=== PATIENT | female | born 1995 | race Caucasian/White ===

== ENCOUNTER 2019-06-25 07:47 | Emergency (ER) | payer SELFPAY ==
[~2019-06-25] VITALS: Ht 147.3 cm; Wt 67.3 kg
[2019-06-25 07:54] VITALS: BP 120/80
--- NOTE | 2019-06-25 07:58 | NUR ---
Patient ambulated to bed 3 with family. RN evaluating patient at bedside.
--- NOTE | 2019-06-25 08:22 | NUR ---
24/F BIB SELF c/o moist cough, bodyaches, f/c, anterior chest wall pain upon coughing, rhinorrhea x 2 wk. PATIENT STATES PAIN OF 9/10 AT THIS TIME. PATIENT POSITIONED FOR COMFORT; HOB ELEVATED; BEDRAILS UP X1; BED DOWN. ER MD MADE AWARE OF PT STATUS.
--- NOTE | 2019-06-25 08:37 | NUR ---
X RAY AT BEDSIDE
--- NOTE | 2019-06-25 09:08 | NUR ---
Dr. Escudero evaluating patient at bedside.
[2019-06-25 09:46] VITALS: BP 130/71
--- NOTE | 2019-06-25 09:46 | NUR ---
Patient discharged with v/s stable. Written and verbal after care instructions given and explained. Patient verbalized understanding. Ambulatory with steady gait. All questions addressed prior to discharge. Advised to follow up with PMD.
== END 2019-06-25 09:46 | disposition home or self-care (01) ==
LOC: MED 07:47
DX: O26.891 Other specified pregnancy related conditions, first trimester (principal); J40 Bronchitis, not specified as acute or chronic; O21.9 Vomiting of pregnancy, unspecified; Z3A.01 Less than 8 weeks gestation of pregnancy; Z33.1 Pregnant state, incidental
CPT/HCPCS: 71045; 81002; 81025; 99283; Q0092

== ENCOUNTER 2019-07-14 23:07 | Emergency (ER) | payer SELFPAY ==
[~2019-07-14] VITALS: Ht 149.9 cm; Wt 66.2 kg
[2019-07-14 23:14] VITALS: BP 124/61
--- NOTE | 2019-07-15 01:02 | NUR ---
PT AMBULATED TO BED 9 WITH PARTNER
--- NOTE | 2019-07-15 01:38 | NUR ---
VSS AT THIS TIME. PT AA0X4
--- NOTE | 2019-07-15 01:40 | NUR ---
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 REPORTS VOMITING X2 TODAY. PT NOT CURRENTLY VOMITING. PT IS 7 WEEKS , CONFIRMED BY US. 2, LIVING 1. DENIES ABORTIONS OR MISCARRIAGES. VSS. AA0X4. BED IS DOWN, LOCKED, BEDRAIL X 1, ERMD TO SEE PT. DENIES MED HX OR RX. OTC VITAMINS
--- NOTE | 2019-07-15 02:14 | NUR ---
LAB AT BEDSIDE
--- NOTE | 2019-07-15 02:17 | NUR ---
US AT BEDSIDE
[2019-07-15 02:27] LABS: BASOPHILS # (AUTO) 0.1 K/uL (0.00-0.22); BASOPHILS % (AUTO) 0.7 % (0.0-2.0); EOSINOPHILS # (AUTO) 0.2 K/uL (0-0.4); EOSINOPHILS % (AUTO) 1.3 % (0.0-4.0); HEMATOCRIT 39.9 % (36-48); HEMOGLOBIN 13.3 g/dL (12.0-16.0); LYMPHOCYTES # (AUTO) 2.8 K/uL (2.5-16.5); LYMPHOCYTES % (AUTO) 23.9 % (20.5-51.1); MEAN CORPUSCULAR HEMOGLOBIN 30 pg (27-31); MEAN CORPUSCULAR HGB CONC 33 g/dL (33-37); MEAN CORPUSCULAR VOLUME 90.5 fL (80-94); MONOCYTES # (AUTO) 0.6 K/uL (0.8-1.0); NEUTROPHILS # (AUTO) 8.1 K/uL (1.8-7.7); PLATELET COUNT (AUTO) 348 K/uL (140-450); RED BLOOD CELL COUNT(AUTO) 4.41 MIL/uL (4.20-5.40); RED CELL DISTRIBUTION WIDTH 12.7 % (11.6-13.7); WHITE BLOOD COUNT (AUTO) 11.7 K/uL (4.8-10.8)
[2019-07-15 02:28] LABS: APPEARANCE,URINE CLEAR (CLEAR); BILIRUBIN,URINE NEGATIVE (NEGATIVE); BLOOD, URINE TRACE-I (NEGATIVE); COLOR,URINE YELLOW (YELLOW); LEUKOCYTE ESTERASE ,URINE 1+ (NEGATIVE); NITRITE, URINE NEGATIVE (NEGATIVE); UGLUCOSE NEGATIVE (NEGATIVE)
[2019-07-15 02:38] LABS: ANION GAP 14.8 (8-16); CREATININE 0.6 mg/dL (0.6-1.3); POTASSIUM 3.8 mmol/L (3.5-5.1)
--- NOTE | 2019-07-15 02:48 | NUR ---
PT AMB TO RESTROOM WITH STEADY GAIT
[2019-07-15 03:07] LABS: NEUTROPHILS % (AUTO) 69.1 % (42.2-75.2)
[2019-07-15 03:20] LABS: RBC,URINE 0-5 /HPF (0-5); WBC,URINE 0-5 /HPF (0-5)
--- NOTE | 2019-07-15 03:23 | NUR ---
VSS AT THIS TIME. PT AA0X4. PENDING PELVIC EXAM
--- NOTE | 2019-07-15 03:40 | NUR ---
Female Leach Tank Tender accompanied female patient for Pelvic Exam WITH DR DWYER. WET MOUNT COLLECTED
[2019-07-15 05:16] VITALS: BP 104/50
--- NOTE | 2019-07-15 05:16 | NUR ---
Patient discharged with v/s stable. Written and verbal after care instructions given and explained. Patient alert, oriented and verbalized understanding of instructions. Ambulatory with steady gait. All questions addressed prior to discharge. ID band removed. Patient advised to follow up with PMD. Rx of FLAGYL given. Patient educated on indication of medication including possible reaction and side effects. Opportunity to ask questions provided and answered. PT INSTRUCTED TO FOLLOW UP WITH OBGYN.
[2019-07-17 06:07] LABS: CHLAMYDIA TRACHOMATIS AMP DNA Negative (Negative)
== END 2019-07-15 05:16 | disposition home or self-care (01) ==
LOC: MED 23:07
DX: O21.8 Other vomiting complicating pregnancy (principal); O20.8 Other hemorrhage in early pregnancy; Z3A.01 Less than 8 weeks gestation of pregnancy
CPT/HCPCS: 36415; 76817; 80048; 81001; 81025; 84702; 85025; 86900; 86901; 87086; 87210; 87491; 99284; Q0092

== ENCOUNTER 2019-07-17 18:22 | Emergency (ER) | payer MEDICAID ==
[~2019-07-17] VITALS: Ht 149.9 cm; Wt 66.2 kg
[2019-07-17 18:54] VITALS: BP 106/73
--- NOTE | 2019-07-17 19:01 | NUR ---
AMBULATED TO BED 7
--- NOTE | 2019-07-17 19:12 | NUR ---
Dr. Swanson examining patient.
--- NOTE | 2019-07-17 19:49 | NUR ---
33 Y/O FEMALE C/O LOWER ABDOMINAL PAIN RADIATING TO LOWER BACK & VAGINAL BLEEDING X TODAY. PREG 7 WEEKS, LMP 04/23/19. A0 L1. PATIENT IS A/OX3; FOLLOWS COMMANDS; BREATHING IS UNLABORED AND SYMMETRICAL. ABDOMINAL SOUNDS HEARD ON ALL FOUR QUADRANTS; SOFT AND ROUND ABDOMEN NOTED. ERMD MADE AWARE OF STATUS. SIDE RAILSX1. MED HX:DENIES NKDA RX: VITAMINS
[2019-07-17 20:37] LABS: APPEARANCE,URINE CLOUDY (CLEAR); BILIRUBIN,URINE NEGATIVE (NEGATIVE); BLOOD, URINE NEGATIVE (NEGATIVE); COLOR,URINE YELLOW (YELLOW); LEUKOCYTE ESTERASE ,URINE 3+ (NEGATIVE); NITRITE, URINE NEGATIVE (NEGATIVE); UGLUCOSE NEGATIVE (NEGATIVE)
[2019-07-17 20:45] LABS: BASOPHILS # (AUTO) 0.1 K/uL (0.00-0.22); BASOPHILS % (AUTO) 0.7 % (0.0-2.0); EOSINOPHILS # (AUTO) 0.1 K/uL (0-0.4); EOSINOPHILS % (AUTO) 1.2 % (0.0-4.0); HEMOGLOBIN 13.6 g/dL (12.0-16.0); LYMPHOCYTES # (AUTO) 2.4 K/uL (2.5-16.5); LYMPHOCYTES % (AUTO) 23.9 % (20.5-51.1); MEAN CORPUSCULAR HEMOGLOBIN 31 pg (27-31); MEAN CORPUSCULAR HGB CONC 34 g/dL (33-37); MEAN CORPUSCULAR VOLUME 91.1 fL (80-94); MONOCYTES # (AUTO) 0.6 K/uL (0.8-1.0); MONOCYTES % (AUTO) 5.9 % (1.7-9.3); NEUTROPHILS # (AUTO) 6.8 K/uL (1.8-7.7); NEUTROPHILS % (AUTO) 68.3 % (42.2-75.2); PLATELET COUNT (AUTO) 355 K/uL (140-450); RED BLOOD CELL COUNT(AUTO) 4.39 MIL/uL (4.20-5.40); RED CELL DISTRIBUTION WIDTH 13.1 % (11.6-13.7)
[2019-07-17 20:48] LABS: RBC,URINE NONE SEEN /HPF (0-5)
[2019-07-17 21:01] LABS: ANION GAP 11.9 (8-16); CARBON DIOXIDE 26.2 mmol/L (21-32); CREATININE 0.5 mg/dL (0.6-1.3); POTASSIUM 4.1 mmol/L (3.5-5.1)
[2019-07-17 21:06] LABS: ALBUMIN 3.4 g/dL (3.4-5.0); TOTAL BILIRUBIN 0.2 mg/dL (0.0-1.0)
--- NOTE | 2019-07-17 21:13 | NUR ---
PATIENT IS QUIETLY SITTING IN BED;NO DISTRESS NOTED. AT BEDSIDE. WILL CONTINUE TO MONITOR.
--- NOTE | 2019-07-17 23:15 | NUR ---
PATIENT IS IN NO DISTRESS AT THIS TIME. AT BEDSIDE. WILL CONTINUE TO MONITOR.
[2019-07-17 23:33] VITALS: BP 113/64
--- NOTE | 2019-07-17 23:33 | NUR ---
Patient discharged with v/s stable. Written and verbal after care instructions given and explained. Patient alert, oriented and verbalized understanding of instructions. Ambulatory with steady gait. All questions addressed prior to discharge. ID band removed. Patient advised to follow up with PMD. Rx of NEUROFANTIN AND REGLAN given. Patient educated on indication of medication including possible reaction and side effects. Opportunity to ask questions provided and answered.
== END 2019-07-17 23:33 | disposition home or self-care (01) ==
LOC: MED 18:22
DX: O20.9 Hemorrhage in early pregnancy, unspecified (principal); O26.891 Other specified pregnancy related conditions, first trimester; R05 Cough; R06.02 Shortness of breath; Z3A.01 Less than 8 weeks gestation of pregnancy
CPT/HCPCS: 36415; 76817; 80053; 81001; 84702; 85025; 87086; 99284; Q0092

== ENCOUNTER 2019-07-23 21:58 | Emergency (ER) | payer MEDICAID ==
[~2019-07-23] VITALS: Ht 149.9 cm; Wt 66.2 kg
[2019-07-23 22:17] VITALS: BP 106/66
--- NOTE | 2019-07-23 22:17 | NUR ---
PT AMBULATED TO BED 12.
--- NOTE | 2019-07-23 22:36 | NUR ---
PT C/O LOW BACK PAIN AND SUPRAPUBIC PAIN X2 DAY. PT STATES 8 WEEKS . N/V. DENIES DIARRHEA. PT STATES SHE WAS DIAGNOSED WITH UTI X1 WEEK AGO. PT STATES SHE HAS BEEN COMPLIANT WITH ANTIBIOTICS. PT TAKING ZOFRAN FOR NAUSEA W/ NO RELIEF. PT ALSO STATES SHE IS TAKING VITAMINS. PT CALM AND PLEASANT IN BED. FAMILY MEMBER AT BEDSIDE. VSS. MEDHX: DENIES ALLERGIES: DENIES
--- NOTE | 2019-07-23 23:25 | NUR ---
PT C/O ACHING LOWER BACK AND LOWER ABD PAIN AT THIS TIME. PT FAMILY MEMBER AT BEDSIDE. VSS. WILL CONTINUE TO MONITOR.
[2019-07-23] MEDS ORDERED: ACETAMINOPHEN EXTRA STRENGTH 500 MG TAB PO ONE (23:55)
[2019-07-24 00:18] LABS: APPEARANCE,URINE CLEAR (CLEAR); COLOR,URINE YELLOW (YELLOW)
[2019-07-24 00:19] LABS: BILIRUBIN,URINE NEGATIVE (NEGATIVE); BLOOD, URINE NEGATIVE (NEGATIVE); LEUKOCYTE ESTERASE ,URINE SMALL (NEGATIVE); NITRITE, URINE NEGATIVE (NEGATIVE); UGLUCOSE NEGATIVE (NEGATIVE)
[2019-07-24 00:20] LABS: RBC,URINE 0-5 /HPF (0-5)
--- NOTE | 2019-07-24 00:22 | NUR ---
PT RESTING IN BED WITH FAMILY MEMBER AT BEDSIDE. BED LOCKED AND IN LOW POSITION, PT IN BED COMFORTABLY. VSS AT THIS TIME. PT STATES PAIN IS TOLERABLE, 5/10. WILL CONTINUE TO MONITOR.
[2019-07-24 00:59] VITALS: BP 110/64
--- NOTE | 2019-07-24 00:59 | NUR ---
Patient discharged with v/s stable. Written and verbal after care instructions given and explained. Patient alert, oriented and verbalized understanding of instructions. Ambulatory with to home. All questions addressed prior to discharge. ID band removed. Patient advised to follow up with PMD. Rx of DICLEGIS, KEFLEX, AND ACETAMINOPHEN given. Patient educated on indication of medication including possible reaction and side effects. Opportunity to ask questions provided and answered. ACCOMPANIED BY FAMILY MEMBER.
== END 2019-07-24 00:59 | disposition home or self-care (01) ==
LOC: MED 21:58
DX: O23.41 Unspecified infection of urinary tract in pregnancy, first trimester (principal); O26.891 Other specified pregnancy related conditions, first trimester; J06.9 Acute upper respiratory infection, unspecified; Z3A.01 Less than 8 weeks gestation of pregnancy
CPT/HCPCS: 81001; 81025; 87086; 99283

== ENCOUNTER 2019-11-28 22:26 | Observation (INO) | payer MEDICAID, OTHER ==
[~2019-11-28] VITALS: Ht 152.4 cm; Wt 64.9 kg
[2019-11-28 22:30] VITALS: BP 108/65
--- NOTE | 2019-11-28 22:35 | NUR ---
TO LABOR AND DELIVERY. VIA WHEEL CHAIR
[2019-11-28 22:50] VITALS: BP 107/68
[2019-11-28] MEDS ORDERED: FERR-252 PO (23:09)
[2019-11-28] MEDS ORDERED: PREN-380 PO (23:09)
[2019-11-28] MEDS ORDERED: cefTRIAXone 1,000 MG in LIDOCAINE MPF 1% 2.1 ML IM ONE (23:45)
[2019-11-29 00:09] LABS: BILIRUBIN,URINE NEGATIVE (NEGATIVE); BLOOD, URINE NEGATIVE (NEGATIVE); COLOR,URINE YELLOW (YELLOW); LEUKOCYTE ESTERASE ,URINE TRACE (NEGATIVE); NITRITE, URINE NEGATIVE (NEGATIVE); UGLUCOSE NEGATIVE (NEGATIVE)
[2019-11-29] MEDS ORDERED: NITROFURANTOIN 100 MG CAP PO SCH (00:10)
[2019-11-29 00:32] LABS: APPEARANCE,URINE SLIGHTLY CLOUDY (CLEAR); RBC,URINE 0-5 /HPF (0-5)
[2019-11-29 00:33] LABS: URINE AMORPHOUS URATE 3+ /HPF (None Seen); WBC,URINE 0-5 /HPF (0-5)
== END 2019-11-29 01:00 | disposition home or self-care (01) ==
LOC: MED 22:26 → MLD 22:48
PROVIDERS: ADMIT Obstetrics & Gynecology; ATTEND Obstetrics & Gynecology
DX: O23.42 Unspecified infection of urinary tract in pregnancy, second trimester (principal); Z3A.26 26 weeks gestation of pregnancy
CPT/HCPCS: 81000; 81001; 87086; 99281; G0378

== ENCOUNTER 2020-02-01 22:05 | Observation (INO) | payer OTHER ==
[~2020-02-01] VITALS: Ht 149.9 cm; Wt 67.1 kg
[~2020-02-01 22:05] MED LIST: FERR-252 PO; PREN-380 PO
[2020-02-02 00:56] LABS: APPEARANCE,URINE CLEAR (CLEAR); BILIRUBIN,URINE NEGATIVE (NEGATIVE); BLOOD, URINE NEGATIVE (NEGATIVE); COLOR,URINE YELLOW (YELLOW); LEUKOCYTE ESTERASE ,URINE NEGATIVE (NEGATIVE); NITRITE, URINE NEGATIVE (NEGATIVE); UGLUCOSE NEGATIVE (NEGATIVE)
== END 2020-02-02 00:59 | disposition home or self-care (01) ==
LOC: MLD 22:05
PROVIDERS: ADMIT Obstetrics & Gynecology; ATTEND Obstetrics & Gynecology
DX: O36.8130 Decreased fetal movements, third trimester, not applicable or unspecified (principal); O26.893 Other specified pregnancy related conditions, third trimester; R10.2 Pelvic and perineal pain; O99.89 Other specified diseases and conditions complicating pregnancy, childbirth and the puerperium; M54.9 Dorsalgia, unspecified; Z3A.34 34 weeks gestation of pregnancy
CPT/HCPCS: 76819; 81003; 87086; G0378; Q0092

== ENCOUNTER 2020-02-08 14:43 | Observation (INO) | payer OTHER ==
[~2020-02-08] VITALS: Ht 152.4 cm; Wt 70.3 kg
[2020-02-08 15:36] VITALS: BP 101/58
[2020-02-08] MEDS ORDERED: cefTRIAXone 1,000 MG in LIDOCAINE MPF 1% 2.1 ML IM SCH (16:30)
[2020-02-08 16:59] LABS: BASOPHILS % (AUTO) 0.3 % (0.0-2.0); EOSINOPHILS % (AUTO) 0.6 % (0.0-4.0); HEMATOCRIT 34.9 % (36-48); HEMOGLOBIN 11.4 g/dL (12.0-16.0); LYMPHOCYTES # (AUTO) 1.9 K/uL (2.5-16.5); LYMPHOCYTES % (AUTO) 22.7 % (20.5-51.1); MEAN CORPUSCULAR HEMOGLOBIN 27 pg (27-31); MEAN CORPUSCULAR HGB CONC 33 g/dL (33-37); MONOCYTES # (AUTO) 0.6 K/uL (0.8-1.0); MONOCYTES % (AUTO) 6.8 % (1.7-9.3); NEUTROPHILS # (AUTO) 5.8 K/uL (1.8-7.7); NEUTROPHILS % (AUTO) 69.6 % (42.2-75.2); PLATELET COUNT (AUTO) 304 K/uL (140-450); RED BLOOD CELL COUNT(AUTO) 4.26 MIL/uL (4.20-5.40); WHITE BLOOD COUNT (AUTO) 8.3 K/uL (4.8-10.8)
[2020-02-08 17:18] LABS: ALBUMIN 2.3 g/dL (3.4-5.0); ANION GAP 13.4 (8-16); CARBON DIOXIDE 21.3 mmol/L (21-32); CREATININE 0.8 mg/dL (0.6-1.3); POTASSIUM 3.7 mmol/L (3.5-5.1); TOTAL BILIRUBIN 0.2 mg/dL (0.0-1.0)
== END 2020-02-08 19:10 | disposition home or self-care (01) ==
LOC: MLD 14:43
PROVIDERS: ADMIT Obstetrics & Gynecology; ATTEND Obstetrics & Gynecology
DX: O26.893 Other specified pregnancy related conditions, third trimester (principal); R10.9 Unspecified abdominal pain; Z3A.37 37 weeks gestation of pregnancy
CPT/HCPCS: 36415; 76805; 80053; 85025; 87086; 96372; G0378; J0696; J2001; Q0092; 81000

== ENCOUNTER 2020-02-17 13:40 | Inpatient (IN) | payer OTHER ==
[~2020-02-17] VITALS: Ht 152.4 cm; Wt 73.9 kg
[2020-02-17] MEDS ORDERED: PROMETHAZINE 25 MG/ML VIAL IVP PRN (14:45)
[2020-02-17 15:25] LABS: BASOPHILS # (AUTO) 0.1 K/uL (0.00-0.22); EOSINOPHILS # (AUTO) 0.1 K/uL (0-0.4); EOSINOPHILS % (AUTO) 0.8 % (0.0-4.0); HEMATOCRIT 35.9 % (36-48); HEMOGLOBIN 11.6 g/dL (12.0-16.0); LYMPHOCYTES # (AUTO) 1.9 K/uL (2.5-16.5); LYMPHOCYTES % (AUTO) 18.2 % (20.5-51.1); MEAN CORPUSCULAR HEMOGLOBIN 26 pg (27-31); MEAN CORPUSCULAR HGB CONC 32 g/dL (33-37); MEAN CORPUSCULAR VOLUME 81.1 fL (80-94); MONOCYTES # (AUTO) 0.5 K/uL (0.8-1.0); MONOCYTES % (AUTO) 4.9 % (1.7-9.3); NEUTROPHILS # (AUTO) 7.7 K/uL (1.8-7.7); NEUTROPHILS % (AUTO) 75.1 % (42.2-75.2); PLATELET COUNT (AUTO) 314 K/uL (140-450); RED BLOOD CELL COUNT(AUTO) 4.42 MIL/uL (4.20-5.40); RED CELL DISTRIBUTION WIDTH 14.5 % (11.6-13.7); WHITE BLOOD COUNT (AUTO) 10.3 K/uL (4.8-10.8)
[2020-02-17 15:30] LABS: BILIRUBIN,URINE NEGATIVE (NEGATIVE); BLOOD, URINE NEGATIVE (NEGATIVE); COLOR,URINE YELLOW (YELLOW); LEUKOCYTE ESTERASE ,URINE 3+ (NEGATIVE); NITRITE, URINE NEGATIVE (NEGATIVE); PH,URINE 5.5 (5.0-9.0); UGLUCOSE NEGATIVE (NEGATIVE)
[2020-02-17 15:41] LABS: ALBUMIN 2.3 g/dL (3.4-5.0); ANION GAP 12.9 (8-16); CARBON DIOXIDE 22.1 mmol/L (21-32); CREATININE 0.7 mg/dL (0.6-1.3); TOTAL BILIRUBIN 0.2 mg/dL (0.0-1.0)
[2020-02-17 15:46] LABS: APPEARANCE,URINE HAZY (CLEAR)
[2020-02-17 15:58] LABS: RBC,URINE NONE SEEN /HPF (0-5)
[2020-02-17] MEDS ORDERED: OXYTOCIN 20 UNITS/LR PREMIX 1,000 ML IV ONE (16:11)
[2020-02-17] MEDS: LACTATED RINGERS 1,000 ML IV SCH ×2 (16:31→23:45)
[2020-02-17] MEDS ORDERED: MORPHINE SULFATE 4 MG/ML SYR IVP PRN (20:20)
[2020-02-17] MEDS ORDERED: ROPIVACAINE 0.2%/NS PREMIX 200 ML EPI ONE (21:29)
[2020-02-17] MEDS ORDERED: ROPIVACAINE 0.2%/NS PREMIX 100 ML EPI SCH (21:50)
[2020-02-18] MEDS ORDERED: BISACODYL 5 MG TABEC PO PRN (03:05)
[2020-02-18] MEDS ORDERED: MEASLES, MUMPS, AND RUBELLA 1 VIAL SQVAC PRN (03:05)
[2020-02-18] MEDS ORDERED: BENZOCAINE/MENTHOL 20%-0.5% 60 GM CAN TP PRN (03:05)
[2020-02-18] MEDS ORDERED: DOCUSATE SODIUM 100 MG GELCAP PO PRN (03:05)
[2020-02-18] MEDS ORDERED: METHYLERGONOVINE 0.2 MG TAB PO PRN (03:05)
[2020-02-18] MEDS ORDERED: SIMETHICONE 80 MG TAB.CHEW PO PRN (03:05)
[2020-02-18] MEDS ORDERED: METHYLERGONOVINE 0.2 MG/ML AMP IM PRN (03:05)
[2020-02-18] MEDS ORDERED: OXYTOCIN 10 UNITS/ML VIAL IM PRN (03:05)
[2020-02-18] MEDS ORDERED: IBUPROFEN 600 MG TAB PO PRN ×2 (03:05)
[2020-02-18] MEDS: IBUPROFEN 800 MG TAB PO PRN (08:08)
--- NOTE | 2020-02-18 09:02 | NUR ---
PATIENT HAS BEEN SCREENED AND CATEGORIZED LOW NUTRITION RISK. PATIENT WILL BE SEEN WITHIN 7 DAYS OF ADMISSION. 02/24/[address]
[2020-02-19 08:07] LABS: HEMATOCRIT 32.8 % (36-48); HEMOGLOBIN 10.6 g/dL (12.0-16.0)
[2020-02-19] MEDS: IBUPROFEN 800 MG TAB PO PRN ×2 (12:39→23:39)
[2020-02-20] MEDS ORDERED: IBUP-2213 PO (08:13)
== END 2020-02-20 10:15 | disposition home or self-care (01) | DRG 560 ==
LOC: MLD 13:40 → MFCC 02-18 05:30
PROVIDERS: ADMIT Obstetrics & Gynecology; ATTEND Obstetrics & Gynecology
PROC: 3E033VJ Introduction of Other Hormone into Peripheral Vein, Percutaneous Approach (ICD-10-PCS; 2020-02-17)
PROC: 10E0XZZ Delivery of Products of Conception, External Approach (ICD-10-PCS; principal; 2020-02-18)
PROC: 0W8NXZZ Division of Female Perineum, External Approach (ICD-10-PCS; 2020-02-18)
PROC: 0HQ9XZZ Repair Perineum Skin, External Approach (ICD-10-PCS; 2020-02-18)
PROC: 00HU33Z Insertion of Infusion Device into Spinal Canal, Percutaneous Approach (ICD-10-PCS; 2020-02-18)
PROC: 3E0R3BZ Introduction of Anesthetic Agent into Spinal Canal, Percutaneous Approach (ICD-10-PCS; 2020-02-18)
DX: O69.81X0 Labor and delivery complicated by cord around neck, without compression, not applicable or unspecified (principal); R71.0 Precipitous drop in hematocrit; O70.0 First degree perineal laceration during delivery; O75.89 Other specified complications of labor and delivery; Z37.0 Single live birth; Z3A.38 38 weeks gestation of pregnancy
CPT/HCPCS: 36415; 51702; 59409; 80053; 81001; 85018; 85025; 86592; 86886; 86900; 86901; 87086; 87653-90; J2590; J2795; J7030; J7120

== ENCOUNTER 2021-02-13 15:32 | Observation (INO) | payer OTHER, SELFPAY ==
[~2021-02-13] VITALS: Ht 152.4 cm; Wt 72.6 kg
[~2021-02-13 15:32] MED LIST changes: +IBUP-2213 PO
[2021-02-13] MEDS ORDERED: ACET-2619 PO (16:26)
[2021-02-13] MEDS ORDERED: cefTRIAXone 1,000 MG in DEXT 5% MINI-BAG PLUS 50 ML IV SCH (16:35)
[2021-02-13] MEDS ORDERED: cefTRIAXone 1,000 MG VIAL ONE (17:17)
[2021-02-13] MEDS: NACL 0.9% 1,000 ML IV SCH ×2 (17:29→18:58)
[2021-02-13 17:33] LABS: APPEARANCE,URINE SL CLOUDY (CLEAR); BILIRUBIN,URINE NEGATIVE (NEGATIVE); BLOOD, URINE NEGATIVE (NEGATIVE); COLOR,URINE YELLOW (YELLOW); LEUKOCYTE ESTERASE ,URINE 3+ (NEGATIVE); NITRITE, URINE POSITIVE (NEGATIVE); PH,URINE 7.5 (5.0-9.0); UGLUCOSE NEGATIVE (NEGATIVE)
[2021-02-13 17:55] LABS: RBC,URINE 0-5 /HPF (0-5); WBC,URINE 16-25 (MOD) /HPF (0-5); YEAST,URINE Moderate /HPF (None Seen)
[2021-02-13 18:42] VITALS: BP 100/61
== END 2021-02-13 22:15 | disposition home or self-care (01) ==
LOC: MLD 15:32
PROVIDERS: ADMIT Obstetrics & Gynecology; ATTEND Obstetrics & Gynecology
DX: O23.43 Unspecified infection of urinary tract in pregnancy, third trimester (principal); Z20.822 Contact with and (suspected) exposure to COVID-19; Z3A.37 37 weeks gestation of pregnancy
CPT/HCPCS: 59025; 81001; 87086; 87426; 87653; 96361; 96365; G0378; J0696; J7060

== ENCOUNTER 2021-11-29 17:42 | Emergency (ER) | payer OTHER ==
[~2021-11-29] VITALS: Ht 152.4 cm; Wt 60.8 kg
[2021-11-29 17:42] VITALS: BP 114/60
[~2021-11-29 17:42] MED LIST changes: -FERR-252 PO; -IBUP-2213 PO
--- NOTE | 2021-11-29 18:10 | NUR ---
26 y/o female, c/o decreased overall strength mainly in the hands, swelling in left leg and pain overall, but mainliny in the right leg for 2 months. Pt states that she had complicated with epidural placement. Pt unable to ambulate due to pain, but can pivot self from one position/placement to another with major assistance. Pt stated she gave x8 months ago and started to experinice the pain x2 months ago. 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 Per patient "she has not been able to carry her daughter or anything heavy for the past 2 months." Pt still has sensation to touch, but stated "the left side feels heavier than the right side." Pt is A&OX4, denies any chest pain, SOB, fever/chills, N/V. Skin is pink/warm/dry. HOB elevated; bedrails x2 up, bed in lowest position. pmh: denies nka med: denies
--- NOTE | 2021-11-29 18:20 | NUR ---
dr. flores bedside evaluating pt
--- NOTE | 2021-11-29 18:50 | NUR ---
IAN WALKED TO LAB
--- NOTE | 2021-11-29 18:53 | NUR ---
BLOODWORK AND URINE WALKED OVER TO LAB
[2021-11-29 19:00] LABS: BASOPHILS # (AUTO) 0.1 K/uL (0.00-0.22); BASOPHILS % (AUTO) 0.9 % (0.0-2.0); EOSINOPHILS # (AUTO) 0.2 K/uL (0-0.4); EOSINOPHILS % (AUTO) 2.3 % (0.0-4.0); HEMATOCRIT 32.5 % (36-48); HEMOGLOBIN 10.4 g/dL (12.0-16.0); LYMPHOCYTES # (AUTO) 1.9 K/uL (2.5-16.5); LYMPHOCYTES % (AUTO) 28.9 % (20.5-51.1); MEAN CORPUSCULAR HEMOGLOBIN 23 pg (27-31); MEAN CORPUSCULAR HGB CONC 32 g/dL (33-37); MEAN CORPUSCULAR VOLUME 71.8 fL (80-94); MONOCYTES # (AUTO) 0.5 K/uL (0.8-1.0); NEUTROPHILS % (AUTO) 59.9 % (42.2-75.2); PLATELET COUNT (AUTO) 555 K/uL (140-450); RED BLOOD CELL COUNT(AUTO) 4.52 MIL/uL (4.20-5.40); RED CELL DISTRIBUTION WIDTH 16.9 % (11.6-13.7); WHITE BLOOD COUNT (AUTO) 6.7 K/uL (4.8-10.8)
[2021-11-29] MEDS ORDERED: FERR240T12 PO (19:09)
[2021-11-29] MEDS ORDERED: IBUP-2213 PO (19:24)
[2021-11-29] MEDS ORDERED: ACET-10509 PO (19:24)
--- NOTE | 2021-11-29 19:25 | NUR ---
REPORT GIVEM TO WALLY DALEY FOR TRANSFER OF CARE
[2021-11-29 19:31] LABS: ALBUMIN 2.9 g/dL (3.4-5.0); ANION GAP 11.5 (8-16); CARBON DIOXIDE 26.2 mmol/L (21-32); CREATININE 0.5 mg/dL (0.6-1.3); POTASSIUM 3.7 mmol/L (3.5-5.1); THYROID STIMULATING HORMONE 0.84 uIU/mL (0.34-3.74); TOTAL BILIRUBIN 0.2 mg/dL (0.0-1.0)
[2021-11-29 19:58] VITALS: BP 114/60
--- NOTE | 2021-11-29 20:28 | NUR ---
Patient discharged with v/s stable. Written and verbal after care instructions given and explained. Patient alert, oriented and verbalized understanding of instructions. Wheel Chair Assisted with to car. All questions addressed prior to discharge. ID band removed. Patient advised to follow up with PMD. Rx of Acetaminophen, Ferrous Gluconate, and Ibuprofen given. Patient educated on indication of medication including possible reaction and side effects. Opportunity to ask questions provided and answered. Pt was assisted to wheelchair by spouse due to weakness. VSS, A/Ox4, unlabored breathing, and calm demenaor.
== END 2021-11-29 20:28 | disposition home or self-care (01) ==
LOC: MED 17:42
DX: U07.1 COVID-19 (principal); D64.9 Anemia, unspecified
CPT/HCPCS: 36415; 80053; 81002; 81025; 84443; 85025; 99283

== ENCOUNTER 2023-01-24 10:49 | Emergency (ER) | payer OTHER ==
[~2023-01-24] VITALS: Ht 149.9 cm; Wt 59.0 kg
[~2023-01-24 10:49] MED LIST changes: +ACET-10509 PO; +FERR240T12 PO; +IBUP-2213 PO
--- NOTE | 2023-01-24 10:54 | NUR ---
PT IN BED
[2023-01-24 10:57] VITALS: BP 103/66
--- NOTE | 2023-01-24 11:31 | NUR ---
ASSUMED PATIENT CARE, NURSING ASSESSMENT COMPLETED.
[2023-01-24] MEDS ORDERED: IBUP-1842 PO (11:48)
[2023-01-24] MEDS ORDERED: LORA1T1237 PO (11:48)
[2023-01-24 12:03] VITALS: BP 103/66
--- NOTE | 2023-01-24 12:04 | NUR ---
Patient discharged with v/s stable. Written and verbal after care instructions given and explained. Patient alert, oriented and verbalized understanding of instructions. Ambulatory with steady gait. All questions addressed prior to discharge. ID band removed. Patient advised to follow up with PMD. Rx of CLARITIN, MOTRIN given. Patient educated on indication of medication including possible reaction and side effects. Opportunity to ask questions provided and answered.
== END 2023-01-24 12:03 | disposition home or self-care (01) ==
LOC: MED 10:49
DX: B34.9 Viral infection, unspecified (principal); Z20.822 Contact with and (suspected) exposure to COVID-19; Z79.899 Other long term (current) drug therapy
CPT/HCPCS: 99283